=== PATIENT | female | born 1960 | race Caucasian/White ===

== ENCOUNTER 2022-09-05 11:11 | Emergency (ER) | payer SELFPAY ==
[2022-09-05] MEDS ORDERED: Morphine 10 MG/ML VIAL ONE (13:22)
[2022-09-05] MEDS ORDERED: Ondansetron ODT 4 MG TAB ONE (13:22)
[2022-09-05] MEDS ORDERED: Ondansetron PF 4 MG/2 ML Vial ONE (13:33)
== END 2022-09-05 14:27 | disposition home or self-care (01) ==
LOC: ERS 11:11
DX: S12.9XXA Fracture of neck, unspecified, initial encounter (principal); R11.2 Nausea with vomiting, unspecified; E03.9 Hypothyroidism, unspecified; I10 Essential (primary) hypertension; F17.210 Nicotine dependence, cigarettes, uncomplicated; W19.XXXA Unspecified fall, initial encounter
CPT/HCPCS: 72125; 96372; J2270; J2405; Q0162